=== PATIENT | female | born 1960 | race American Indian/Alaskan Native ===

== ENCOUNTER 2021-01-03 07:31 | Outpatient (CLI) | payer MEDICAID ==
--- NOTE | 2021-01-03 09:53 | Magnetic Resonance Report ---
MRI lumbar spine without contrast INDICATION: Low back pain with left hip pain TECHNIQUE: Axial and sagittal images were performed. FINDINGS: Alignment appears normal with mild anterolisthesis of L3-L4 and L4-L5. Conus appears normal . Heterogeneous marrow signal seen throughout. Mild muscle atrophy in the posterior paraspinal muscle s L1-L2: Disc desiccation with small disc bulge without spinal canal narrowing or neuroforaminal narrow ing. L2-L3: Facet hypertrophy with posterior disc bulge. No significant neuroforaminal narrowing. L3-L4: Broad-based posterior disc bulge with central disc protrusion. The central disc protrusion ext ends solid superiorly and posterior to L3. There is mild bilateral lateral recess narrowing with mild bilateral neuroforaminal narrowing. L4-L5: Mild anterolisthesis with disc desiccation. There is a broad-based posterior disc bulge/intrus ion asymmetric to the right. Moderate right lateral recess narrowing with mild to moderate right neur oforaminal narrowing. Mild left lateral recess narrowing. L5-S1: Disc desiccation posterior disc bulge. No significant neuroforaminal narrowing. IMPRESSION: Multilevel discogenic degenerative change. Please see above for level by level discussion. Signer Name: Pablo Cabrera MD Signed: 01/03/2021 9:48 AM Workstation Name: [id number]
== END 2021-01-03 07:32 | disposition home or self-care (01) ==
LOC: MRI 07:31
PROVIDERS: ATTEND Nurse Practitioner Family
DX: M47.816 Spondylosis without myelopathy or radiculopathy, lumbar region (principal); M51.37 Other intervertebral disc degeneration, lumbosacral region; M43.16 Spondylolisthesis, lumbar region; M48.061 Spinal stenosis, lumbar region without neurogenic claudication
CPT/HCPCS: 72148